=== PATIENT | male | born 2000 | race Hispanic/Latino ===

== ENCOUNTER 2019-05-19 16:32 | Emergency (ER) | payer OTHER ==
[~2019-05-19] VITALS: Ht 165.1 cm; Wt 55.7 kg
[2019-05-19] MEDS ORDERED: dexameTHASONE 20 MG/5 ML VIAL (J1100) IV ONE (19:30)
[2019-05-19] MEDS ORDERED: CLINDAMYCIN 900 MG in IV 1 EA IV ONE (19:30)
[2019-05-19] MEDS ORDERED: NS 1,000 ML IV ONE (19:30)
[2019-05-19 19:56] LABS: BASO # 0.1 10^3/uL (0.0-0.2); BASO % 0.7 % (0.0-1.0); EOS # 0.3 10^3/uL (0.0-0.5); EOS % 1.5 % (0.0-3.0); HEMATOCRIT 47.7 % (42.0-52.0); LYMPH # 2.6 10^3/uL (1.5-5.0); LYMPH % 14.7 % (24.0-44.0); MEAN CORPUSCULAR HEMOGLOBIN 29.4 pg (27.0-33.0); MEAN CORPUSCULAR HGB CONC 33.5 g/dl (32.0-36.5); MEAN CORPUSCULAR VOLUME 87.7 fl (80.0-96.0); MONO % 5.8 % (0.0-5.0); NEUTROPHILS # 13.3 10^3/uL (1.5-8.5); NEUTROPHILS % 75.5 % (36.0-66.0); PLATELET COUNT, AUTOMATED 391 10^3/uL (150-450); RED BLOOD COUNT 5.44 10^6/uL (4.30-6.10); WHITE BLOOD COUNT 17.6 10^3/uL (4.0-10.0)
[2019-05-19 20:16] LABS: BLOOD UREA NITROGEN 11 MG/DL (7-18); CALCIUM LEVEL 9.1 MG/DL (8.5-10.1); CARBON DIOXIDE LEVEL 28 MEQ/L (21-32); CHLORIDE LEVEL 102 MEQ/L (98-107); CREATININE FOR GFR 0.93 MG/DL (0.70-1.30); GLUCOSE, FASTING 103 MG/DL (70-100); POTASSIUM SERUM 3.7 MEQ/L (3.5-5.1); SODIUM LEVEL 138 MEQ/L (136-145)
[2019-05-19 20:23] LABS: MONO REFLEX EBV COMP NEGATIVE (NEGATIVE)
[2019-05-19] MEDS ORDERED: KETOROLAC 30 MG/ML VIAL (J1885) IV ONE (20:30)
[2019-05-19 21:21] VITALS: BP 118/55
[2019-05-19] MEDS ORDERED: IBUP80TA PO (21:22)
[2019-05-19] MEDS ORDERED: CLEO300C2 PO (21:22)
[2019-05-24 00:06] LABS: EBV VIRAL CAPSID AG IgM <36.0 U/mL (0.0-35.9)
== END 2019-05-19 21:32 | disposition home or self-care (01) ==
LOC: M ED 16:32
DX: J03.90 Acute tonsillitis, unspecified (principal)
CPT/HCPCS: 80048; 85025; 86308; 86663; 86664; 86665; 87880; 96361; 96365; 96366; 96375; 99284; J1100; J1885